=== PATIENT | female | born 1955 | race African-American/Black ===

== ENCOUNTER 2016-09-15 12:10 | Emergency (ER) | payer MEDICARE, MEDICAID ==
[~2016-09-15] VITALS: Ht 167.6 cm; Wt 95.0 kg
[~2016-09-15 12:10] MED LIST: ANXIETY PILL; CARI350T PO; DEPRESSION PILL; FENT1PAT4 TP; OXYC5CAP12 PO; PREG50CA PO; TEMAZAPAM
[2016-09-15] MEDS ORDERED: TRAMADOL 50MG TABLET PO ONE (17:00)
[2016-09-15 17:27] VITALS: BP 151/77
== END 2016-09-15 18:25 | disposition home or self-care (01) ==
LOC: ER 13:06
DX: M25.551 Pain in right hip (principal); R51 Headache; R07.89 Other chest pain; I10 Essential (primary) hypertension; Z88.6 Allergy status to analgesic agent; Z88.8 Allergy status to other drugs, medicaments and biological substances
CPT/HCPCS: 70450; 71111; 73502; 99284

== ENCOUNTER 2016-09-25 20:45 | Inpatient (IN) | payer MEDICARE, MEDICAID ==
[~2016-09-25] VITALS: Ht 152.4 cm; Wt 136.5 kg
[~2016-09-25 20:45] MED LIST changes: +ETOMIDATE 2MG/ML 10ML VIAL IV ONE; +SUCCINYLCHOLINE CHLORIDE 200MG/10ML VIAL IV ONE
[2016-09-25] MEDS ORDERED: PROPOFOL 10MG/ML 100ML 100 ML IV ONE ×2 (21:26→23:15)
[2016-09-25 21:53] LABS: BG BASE EXCESS -2.7 mmol/L (-2.0-2.0); BG FRACTION INSPIRED OXYGEN 50; BG HCO3 ACT 23.7 mmol/L (22.0-26.0); BG METHEMOGLOBIN 0.3 % (0.0-1.5); BG OXYGEN SATURATION 96.8 % (92.0-98.5); BG OXYHEMOGLOBIN 90.7 % (94.0-97.0); BG PO2 104.8 mmHg (75.0-100.0); BG SAMPLE SITE LEFT RADIAL; BG TIDAL VOLUME(mL) 550 mL; BG TOTAL HEMOGLOBIN 14.5 g/dL (12.0-18.0); BG VENT MODE VENT - A/C; BG VENT RATE 16 set
[2016-09-25 22:27] LABS: BASOPHILS % 0.9 % (0.0-2.0); EOSINOPHILS % 2.1 % (0.0-5.0); HEMATOCRIT. 44.1 % (36.0-48.0); HEMOGLOBIN. 14.8 g/dL (12.0-16.0); LYMPHOCYTES % 52.2 % (20.0-50.0); MEAN CORPUSCULAR HEMOGLOBIN 31.2 pg (28.0-32.0); MONOCYTES % 6.7 % (2.0-8.0); NEUTROPHILS % 38.1 % (40.0-76.0); PLATELET 257 x1000/uL (130-400); RED BLOOD CELL COUNT 4.74 mill/uL (4.2-5.4)
[2016-09-25 22:35] LABS: CARBON DIOXIDE 28 mEq/L (21-32); CHLORIDE 109 mEq/L (98-107)
[2016-09-25 22:40] LABS: ETHANOL BLOOD < 10 mg/dL
[2016-09-25 23:07] LABS: CLARITY URINE CLEAR (CLEAR); COLOR URINE YELLOW (YELLOW); GLUCOSE URINE NEGATIVE (NEGATIVE); KETONES URINE TRACE (NEGATIVE); LEUKOCYTE ESTERASE URINE NEGATIVE (NEGATIVE); NITRITE URINE NEGATIVE (NEGATIVE); OCCULT BLOOD URINE NEGATIVE (NEGATIVE); PH URINE 5.5 (4.5-8.0); PROTEIN URINE TRACE (NEGATIVE); SPECIFIC GRAVITY URINE 1.027 (1.005-1.030)
[2016-09-25 23:22] LABS: *AMPHETAMINES SCREEN URINE NEGATIVE (NEGATIVE); *BARBITURATES SCREEN URINE NEGATIVE (NEGATIVE); *BENZODIAZEPINES SCREEN URINE PRESUMTIVE POSITIVE (NEGATIVE); *COCAINE SCREEN URINE NEGATIVE (NEGATIVE); CANNABINOID URINE SCREEN NEGATIVE (NEGATIVE); METHADONE URINE SCREEN NEGATIVE (NEGATIVE); OPIATES URINE SCREEN PRESUMTIVE POSITIVE (NEGATIVE); PHENCYCLIDINE URINE SCREEN NEGATIVE (NEGATIVE)
[2016-09-26] VITALS (39 sets, daily range): BP systolic 128–174; BP diastolic 56–97
[2016-09-26] MEDS ORDERED: PROPOFOL 10MG/ML 100ML 100 ML IV ONE ×2 (01:45→03:00)
[2016-09-26] MEDS ORDERED: DEXT 5%/0.45% NACL 1000ML 1,000 ML IV ONE (03:24)
[2016-09-26] MEDS ORDERED: SODIUM CHLORIDE 0.9% 1,000 ML IV ONE (03:24)
[2016-09-26] MEDS ORDERED: LORAZEPAM 2MG/ML CPJ IV ONE (04:45)
[2016-09-26] MEDS ORDERED: DEXT 5%/0.9% NACL 1,000 ML IV SCH (06:00)
[2016-09-26] MEDS: PANTOPRAZOLE 80 MG in SODIUM CHLORIDE 0.9% 100 ML IV SCH ×2 (08:09→17:25)
[2016-09-26] MEDS: PROPOFOL 10MG/ML 100ML 100 ML IV PRN ×7 (08:10→23:35)
[2016-09-26] MEDS ORDERED: DOCUSATE SODIUM 100MG CAPSULE PO PRN (09:15)
[2016-09-26] MEDS ORDERED: CLONIDINE 0.1MG TABLET PO PRN (09:15)
[2016-09-26] MEDS ORDERED: ONDANSETRON HCL 4MG/2ML VIAL IV PRN (09:15)
[2016-09-26] MEDS ORDERED: GUAIFENESIN 200MG/10ML SUGAR FREE UDC PO PRN (09:15)
[2016-09-26] MEDS ORDERED: ACETAMINOPHEN 650MG/20.3ML UDC GT PRN (09:15)
[2016-09-26] MEDS ORDERED: NA PHOS,M-B/NA PHOS,DI-BA ENEMA 118ML PR PRN (09:15)
[2016-09-26] MEDS ORDERED: HYDROCODONE/ACETAMINOPHEN 5/325MG TABLET PO PRN (09:15)
[2016-09-26] MEDS ORDERED: IPRATROPIUM/ALBUTEROL 0.5-3(2.5)MG/3ML NEB INH SCH (09:15)
[2016-09-26] MEDS ORDERED: MAGNESIUM/ALUMINUM HYDROXIDE/SIMETHICONE 30ML UDC PO PRN (09:15)
[2016-09-26] MEDS ORDERED: ACETAMINOPHEN 650MG SUPP PR PRN (09:15)
[2016-09-26] MEDS: DEXT 5%/0.45% NACL 1000ML 1,000 ML IV SCH ×2 (09:36→19:50)
[2016-09-26 09:57] LABS: BG BASE EXCESS 0.5 mmol/L (-2.0-2.0); BG CARBOXYHEMOGLOBIN 1.1 % (0.5-1.5); BG DEOXYHEMOGLOBIN 2.9 % (0.0-5.0); BG FRACTION INSPIRED OXYGEN 50; BG HCO3 ACT 25.2 mmol/L (22.0-26.0); BG METHEMOGLOBIN 0.4 % (0.0-1.5); BG OXYGEN SATURATION 97.1 % (92.0-98.5); BG OXYHEMOGLOBIN 95.6 % (94.0-97.0); BG PH 7.407 (7.350-7.450); BG PO2 95.1 mmHg (75.0-100.0); BG SAMPLE SITE LEFT BRACHIAL; BG TIDAL VOLUME(mL) 600 mL; BG TOTAL HEMOGLOBIN 14.3 g/dL (12.0-18.0); BG VENT MODE VENT - A/C; BG VENT RATE 16 set
[2016-09-26] MEDS ORDERED: ENOXAPARIN 40MG/0.4ML SYR SUBCUT SCH (10:47)
[2016-09-26] MEDS: ENALAPRIL 1.25MG/ML VIAL 1ML IV SCH ×3 (11:09→23:35)
[2016-09-26] MEDS: IPRATROPIUM/ALBUTEROL 0.5-3(2.5)MG/3ML NEB HHN SCH ×3 (11:50→20:29)
[2016-09-26] MEDS: SODIUM CHLORIDE 0.9% INJ 3ML FLUSH IVF SCH ×2 (14:00→21:24)
[2016-09-26] MEDS ORDERED: ACET1TAB14 PO (14:28)
[2016-09-26] MEDS ORDERED: POTA10TA15 PO (14:28)
[2016-09-26] MEDS ORDERED: DIPH1TAB PO (14:28)
[2016-09-26] MEDS ORDERED: FAMO40TA7 PO (14:28)
[2016-09-26] MEDS ORDERED: TEMA30CA PO (14:28)
[2016-09-26] MEDS ORDERED: CYAN10009 PO (14:28)
[2016-09-26] MEDS ORDERED: HYDR-4134 PO (14:28)
[2016-09-26] MEDS ORDERED: LOSA100T14 PO (14:28)
[2016-09-26] MEDS ORDERED: AMLO2.5T45 PO (14:28)
[2016-09-26] MEDS ORDERED: FERR-63 PO (14:28)
[2016-09-26] MEDS ORDERED: ALPR-392 PO (14:28)
[2016-09-26] MEDS ORDERED: CARI350T27 PO (14:28)
[2016-09-27] VITALS (47 sets, daily range): BP systolic 121–181; BP diastolic 50–99
[2016-09-27] MEDS: IPRATROPIUM/ALBUTEROL 0.5-3(2.5)MG/3ML NEB HHN SCH ×6 (00:36→20:45)
[2016-09-27] MEDS: PROPOFOL 10MG/ML 100ML 100 ML IV PRN ×9 (02:27→23:26)
[2016-09-27] MEDS: PANTOPRAZOLE 80 MG in SODIUM CHLORIDE 0.9% 100 ML IV SCH ×2 (02:43→14:29)
[2016-09-27] MEDS: HYDRALAZINE 20MG/ML VIAL IV PRN ×2 (04:48→19:06)
[2016-09-27] MEDS: DEXT 5%/0.45% NACL 1000ML 1,000 ML IV SCH ×2 (05:07→15:10)
[2016-09-27 05:36] LABS: BASOPHILS % 0.2 % (0.0-2.0); EOSINOPHILS % 0.1 % (0.0-5.0); HEMATOCRIT. 41.9 % (36.0-48.0); HEMOGLOBIN. 13.8 g/dL (12.0-16.0); LYMPHOCYTES % 12.8 % (20.0-50.0); MEAN CORPUSCULAR HEMOGLOBIN 30.4 pg (28.0-32.0); MEAN CORPUSCULAR VOLUME 92.5 fL (81.0-99.0); MEAN PLATELET VOLUME 7.8 fl (7.4-10.4); MONOCYTES % 5.9 % (2.0-8.0); PLATELET 228 x1000/uL (130-400); RED BLOOD CELL COUNT 4.53 mill/uL (4.2-5.4); RED CELL DISTRIBUTION WIDTH 14.1 % (11.6-14.6)
[2016-09-27] MEDS ORDERED: HYDRALAZINE 20MG/ML VIAL IV SCH (06:00)
[2016-09-27] MEDS: SODIUM CHLORIDE 0.9% INJ 3ML FLUSH IVF SCH ×3 (06:23→21:05)
[2016-09-27] MEDS: ENALAPRIL 1.25MG/ML VIAL 1ML IV SCH ×3 (06:27→18:47)
[2016-09-27 07:47] LABS: CARBON DIOXIDE 23 mEq/L (21-32); CHLORIDE 108 mEq/L (98-107)
[2016-09-27 08:08] LABS: BG BASE EXCESS 1.9 mmol/L (-2.0-2.0); BG CARBOXYHEMOGLOBIN 0.8 % (0.5-1.5); BG DEOXYHEMOGLOBIN 2.5 % (0.0-5.0); BG FRACTION INSPIRED OXYGEN 50; BG HCO3 ACT 26.3 mmol/L (22.0-26.0); BG METHEMOGLOBIN 0.1 % (0.0-1.5); BG OXYGEN SATURATION 97.5 % (92.0-98.5); BG OXYHEMOGLOBIN 96.6 % (94.0-97.0); BG PCO2 40.5 mmHg (35.0-45.0); BG PO2 98.1 mmHg (75.0-100.0); BG SAMPLE SITE RIGHT RADIAL; BG TIDAL VOLUME(mL) 500 mL; BG TOTAL HEMOGLOBIN 15.9 g/dL (12.0-18.0); BG VENT MODE VENT - A/C; BG VENT RATE 16 set
[2016-09-27] MEDS ORDERED: POTASSIUM CHLORIDE INJ 40 MEQ in DEXT 5% WATER 250 ML IV SCH (11:00)
[2016-09-27] MEDS: CEFEPIME 1,000 MG in DEXTROSE 5% WATER 50 ML IV SCH ×2 (12:53→22:00)
[2016-09-27] MEDS: MORPHINE SULFATE 2 MG/ML CPJ (NOT FOR IM USE) IV PRN (21:08)
[2016-09-28] VITALS (50 sets, daily range): BP systolic 123–165; BP diastolic 55–97
[2016-09-28] MEDS: IPRATROPIUM/ALBUTEROL 0.5-3(2.5)MG/3ML NEB HHN SCH ×6 (00:12→20:46)
[2016-09-28] MEDS: ENALAPRIL 1.25MG/ML VIAL 1ML IV SCH ×5 (01:17→23:27)
[2016-09-28] MEDS: PANTOPRAZOLE 80 MG in SODIUM CHLORIDE 0.9% 100 ML IV SCH ×3 (01:17→20:06)
[2016-09-28] MEDS: DEXT 5%/0.45% NACL 1000ML 1,000 ML IV SCH ×2 (01:18→11:10)
[2016-09-28] MEDS: PROPOFOL 10MG/ML 100ML 100 ML IV PRN ×4 (03:22→09:02)
[2016-09-28] MEDS: MORPHINE SULFATE 2 MG/ML CPJ (NOT FOR IM USE) IV PRN ×4 (03:27→20:07)
[2016-09-28] MEDS: SODIUM CHLORIDE 0.9% INJ 3ML FLUSH IVF SCH ×3 (05:19→21:18)
[2016-09-28 05:24] LABS: BASOPHILS % 0.3 % (0.0-2.0); EOSINOPHILS % 0.2 % (0.0-5.0); HEMATOCRIT. 37.4 % (36.0-48.0); HEMOGLOBIN. 12.6 g/dL (12.0-16.0); LYMPHOCYTES % 12.2 % (20.0-50.0); MEAN CORPUSCULAR HEMOGLOBIN 31.2 pg (28.0-32.0); MEAN CORPUSCULAR VOLUME 92.6 fL (81.0-99.0); MEAN PLATELET VOLUME 8.3 fl (7.4-10.4); NEUTROPHILS % 81.3 % (40.0-76.0); PLATELET 165 x1000/uL (130-400); RED BLOOD CELL COUNT 4.03 mill/uL (4.2-5.4)
[2016-09-28 05:54] LABS: CARBON DIOXIDE 28 mEq/L (21-32); CHLORIDE 107 mEq/L (98-107)
[2016-09-28 08:41] LABS: BG BASE EXCESS -1.6 mmol/L (-2.0-2.0); BG DEOXYHEMOGLOBIN 5.7 % (0.0-5.0); BG HCO3 ACT 21.9 mmol/L (22.0-26.0); BG METHEMOGLOBIN 0.1 % (0.0-1.5); BG OXYGEN SATURATION 94.2 % (92.0-98.5); BG OXYHEMOGLOBIN 93.2 % (94.0-97.0); BG PCO2 33.1 mmHg (35.0-45.0); BG PH 7.438 (7.350-7.450); BG SAMPLE SITE RIGHT RADIAL; BG TIDAL VOLUME(mL) 500 mL; BG TOTAL HEMOGLOBIN 13.2 g/dL (12.0-18.0); BG VENT MODE VENT - A/C; BG VENT RATE 16 set
[2016-09-28] MEDS: CEFEPIME 1,000 MG in DEXTROSE 5% WATER 50 ML IV SCH ×2 (09:05→21:43)
[2016-09-28 09:11] LABS: PHOSPHORUS 2.7 mg/dL (2.5-4.9)
[2016-09-28] MEDS: PROPOFOL 10MG/ML 100ML 100 ML IV SCH ×5 (11:42→23:02)
[2016-09-28] MEDS ORDERED: KCL 20MEQ/100ML PREMIX 100 ML IV NR (13:00)
[2016-09-28] MEDS ORDERED: LIDOCAINE HCL/PF 1% 2ML VIAL ONE (13:23)
[2016-09-28] MEDS ORDERED: POTASSIUM CHLORIDE INJ 40 MEQ in DEXT 5% WATER 250 ML IV NR (23:30)
[2016-09-29] VITALS (56 sets, daily range): BP systolic 62–167; BP diastolic 32–97
[2016-09-29] MEDS: IPRATROPIUM/ALBUTEROL 0.5-3(2.5)MG/3ML NEB HHN SCH ×6 (00:04→20:04)
[2016-09-29] MEDS: MORPHINE SULFATE 2 MG/ML CPJ (NOT FOR IM USE) IV PRN ×4 (00:14→21:12)
[2016-09-29] MEDS: PROPOFOL 10MG/ML 100ML 100 ML IV SCH ×3 (01:17→07:44)
[2016-09-29] MEDS: DEXT 5%/0.45% NACL 1000ML 1,000 ML IV SCH ×2 (04:36→15:42)
[2016-09-29] MEDS: SODIUM CHLORIDE 0.9% INJ 3ML FLUSH IVF SCH ×3 (05:17→21:05)
[2016-09-29] MEDS: PANTOPRAZOLE 80 MG in SODIUM CHLORIDE 0.9% 100 ML IV SCH (05:32)
[2016-09-29] MEDS: ENALAPRIL 1.25MG/ML VIAL 1ML IV SCH ×3 (05:32→17:55)
[2016-09-29 08:56] LABS: BG BASE EXCESS 0.5 mmol/L (-2.0-2.0); BG CARBOXYHEMOGLOBIN 0.8 % (0.5-1.5); BG FRACTION INSPIRED OXYGEN 45; BG HCO3 ACT 24.9 mmol/L (22.0-26.0); BG METHEMOGLOBIN 0.2 % (0.0-1.5); BG OXYGEN SATURATION 94.9 % (92.0-98.5); BG PCO2 39.6 mmHg (35.0-45.0); BG PH 7.417 (7.350-7.450); BG PO2 78.1 mmHg (75.0-100.0); BG PRESSURE SUPPORT 8; BG SAMPLE SITE LEFT RADIAL; BG TIDAL VOLUME(mL) 500 mL; BG TOTAL HEMOGLOBIN 12.3 g/dL (12.0-18.0); BG VENT MODE VENT - SIMV; BG VENT RATE 12 set
[2016-09-29] MEDS: CEFEPIME 1,000 MG in DEXTROSE 5% WATER 50 ML IV SCH ×2 (09:25→21:05)
[2016-09-29 10:06] LABS: BASOPHILS % 0.4 % (0.0-2.0); EOSINOPHILS % 1.9 % (0.0-5.0); HEMATOCRIT. 37.8 % (36.0-48.0); HEMOGLOBIN. 12.4 g/dL (12.0-16.0); LYMPHOCYTES % 18.5 % (20.0-50.0); MEAN CORPUSCULAR HEMOGLOBIN 30.8 pg (28.0-32.0); MEAN CORPUSCULAR VOLUME 94.1 fL (81.0-99.0); MEAN PLATELET VOLUME 8.2 fl (7.4-10.4); MONOCYTES % 8.2 % (2.0-8.0); PLATELET 185 x1000/uL (130-400); RED BLOOD CELL COUNT 4.02 mill/uL (4.2-5.4); RED CELL DISTRIBUTION WIDTH 14.2 % (11.6-14.6)
[2016-09-29 10:21] LABS: CARBON DIOXIDE 26 mEq/L (21-32); CHLORIDE 107 mEq/L (98-107)
[2016-09-29] MEDS ORDERED: FENTANYL CITRATE/PF 50MCG/ML 2ML VIAL ONE (10:33)
[2016-09-29] MEDS ORDERED: SIMETHICONE 40 MG/0.6 ML 30ML ONE (10:33)
[2016-09-29] MEDS ORDERED: MIDAZOLAM HCL 5 MG/5 ML VIAL ONE (10:33)
[2016-09-29] MEDS ORDERED: MIDAZOLAM HCL 5 MG/5 ML VIAL IV PRN (10:50)
[2016-09-29] MEDS ORDERED: FENTANYL CITRATE/PF 50MCG/ML 2ML VIAL IV PRN (10:50)
[2016-09-29] MEDS: PROPOFOL 10MG/ML 100ML 100 ML IV PRN ×4 (11:55→22:05)
[2016-09-29] MEDS ORDERED: SODIUM CHLORIDE 0.9% 10ML VIAL ONE (13:49)
[2016-09-29] MEDS: PANTOPRAZOLE SODIUM 40 MG/VIAL IV SCH (21:05)
[2016-09-30] VITALS (85 sets, daily range): BP systolic 95–154; BP diastolic 43–107
[2016-09-30] MEDS: DEXAMETHASONE 4MG/ML 1ML VIAL IV SCH ×5 (00:05→23:07)
[2016-09-30] MEDS: ENALAPRIL 1.25MG/ML VIAL 1ML IV SCH ×5 (00:05→23:07)
[2016-09-30] MEDS: IPRATROPIUM/ALBUTEROL 0.5-3(2.5)MG/3ML NEB HHN SCH ×6 (00:38→20:14)
[2016-09-30] MEDS: PROPOFOL 10MG/ML 100ML 100 ML IV PRN ×6 (01:26→17:55)
[2016-09-30] MEDS: MORPHINE SULFATE 2 MG/ML CPJ (NOT FOR IM USE) IV PRN ×2 (02:17→19:30)
[2016-09-30] MEDS: DEXT 5%/0.45% NACL 1000ML 1,000 ML IV SCH ×2 (02:30→13:13)
[2016-09-30] MEDS: SODIUM CHLORIDE 0.9% INJ 3ML FLUSH IVF SCH ×3 (05:01→21:46)
[2016-09-30 05:29] LABS: HEMATOCRIT 32.3 % (36.0-48.0); HEMOGLOBIN 11.2 g/dL (12.0-16.0); MEAN CORPUSCULAR HEMOGLOBIN 31.9 pg (28.0-32.0); MEAN CORPUSCULAR VOLUME 92.1 fL (81.0-99.0); PLATELET 189 x1000/uL (130-400); RED BLOOD CELL COUNT 3.51 mill/uL (4.2-5.4); RED CELL DISTRIBUTION WIDTH 13.7 % (11.6-14.6)
[2016-09-30 05:56] LABS: CARBON DIOXIDE 31 mEq/L (21-32); CHLORIDE 104 mEq/L (98-107)
[2016-09-30] MEDS: CEFEPIME 1,000 MG in DEXTROSE 5% WATER 50 ML IV SCH ×2 (08:17→21:45)
[2016-09-30] MEDS ORDERED: PANTOPRAZOLE SODIUM 40 MG/VIAL IV SCH (09:00)
[2016-09-30] MEDS: PANTOPRAZOLE SODIUM 40 MG/VIAL IV SCH ×2 (09:30→21:45)
[2016-09-30 09:45] LABS: BG BASE EXCESS 2.4 mmol/L (-2.0-2.0); BG CARBOXYHEMOGLOBIN 0.3 % (0.5-1.5); BG DEOXYHEMOGLOBIN 4.5 % (0.0-5.0); BG FRACTION INSPIRED OXYGEN 45; BG HCO3 ACT 27.3 mmol/L (22.0-26.0); BG METHEMOGLOBIN 0.1 % (0.0-1.5); BG OXYGEN SATURATION 95.5 % (92.0-98.5); BG OXYHEMOGLOBIN 95.1 % (94.0-97.0); BG PCO2 43.7 mmHg (35.0-45.0); BG PH 7.414 (7.350-7.450); BG PO2 84.9 mmHg (75.0-100.0); BG PRESSURE SUPPORT 8; BG SAMPLE SITE LEFT RADIAL; BG TOTAL HEMOGLOBIN 12.6 g/dL (12.0-18.0); BG VENT MODE VENT - CPAP
[2016-09-30] MEDS ORDERED: POTASSIUM CHLORIDE INJ 40 MEQ in DEXT 5% WATER 250 ML IV NR (11:00)
[2016-09-30] MEDS ORDERED: MIDAZOLAM HCL 50 MG in DEXTROSE 5% WATER 40 ML IV PRN (19:45)
[2016-09-30] MEDS ORDERED: FENTANYL CITRATE/PF 500 MCG in SODIUM CHLORIDE 0.9% 40 ML IV PRN (21:00)
[2016-09-30] MEDS: QUETIAPINE FUMARATE 25MG TABLET NG SCH (21:45)
[2016-10-01] VITALS (91 sets, daily range): BP systolic 107–154; BP diastolic 42–132
[2016-10-01] MEDS: IPRATROPIUM/ALBUTEROL 0.5-3(2.5)MG/3ML NEB HHN SCH ×6 (00:17→20:24)
[2016-10-01 05:57] LABS: CARBON DIOXIDE 32 mEq/L (21-32); CHLORIDE 106 mEq/L (98-107)
[2016-10-01] MEDS: ENALAPRIL 1.25MG/ML VIAL 1ML IV SCH ×4 (06:00→23:22)
[2016-10-01] MEDS: DEXAMETHASONE 4MG/ML 1ML VIAL IV SCH ×4 (06:02→23:23)
[2016-10-01] MEDS: SODIUM CHLORIDE 0.9% INJ 3ML FLUSH IVF SCH ×3 (06:04→22:57)
[2016-10-01] MEDS: DEXT 5%/0.45% NACL 1000ML 1,000 ML IV SCH (06:07)
[2016-10-01] MEDS: PANTOPRAZOLE SODIUM 40 MG/VIAL IV SCH ×2 (08:46→20:23)
[2016-10-01] MEDS: CEFEPIME 1,000 MG in DEXTROSE 5% WATER 50 ML IV SCH ×2 (08:46→20:24)
[2016-10-01] MEDS: QUETIAPINE FUMARATE 25MG TABLET NG SCH ×2 (08:46→20:23)
[2016-10-01] MEDS ORDERED: LACTULOSE 20G/30ML UDC PO PRN (11:00)
[2016-10-01] MEDS: MORPHINE SULFATE 2 MG/ML CPJ (NOT FOR IM USE) IV PRN ×2 (12:18→20:26)
[2016-10-01] MEDS: HYDRALAZINE 20MG/ML VIAL IV PRN (13:30)
[2016-10-01] MEDS: LORAZEPAM 2MG/ML CPJ IV PRN ×3 (14:10→23:20)
[2016-10-02] VITALS (52 sets, daily range): BP systolic 98–163; BP diastolic 56–123
[2016-10-02] MEDS: IPRATROPIUM/ALBUTEROL 0.5-3(2.5)MG/3ML NEB HHN SCH ×6 (00:08→20:00)
[2016-10-02] MEDS: DEXAMETHASONE 4MG/ML 1ML VIAL IV SCH (05:57)
[2016-10-02] MEDS: ENALAPRIL 1.25MG/ML VIAL 1ML IV SCH ×4 (05:59→23:37)
[2016-10-02] MEDS: SODIUM CHLORIDE 0.9% INJ 3ML FLUSH IVF SCH (06:00)
[2016-10-02] MEDS: DEXT 5%/0.45% NACL 1000ML 1,000 ML IV SCH (06:01)
[2016-10-02] MEDS: PANTOPRAZOLE SODIUM 40 MG/VIAL IV SCH ×2 (08:19→20:21)
[2016-10-02] MEDS: QUETIAPINE FUMARATE 25MG TABLET NG SCH ×2 (08:19→20:21)
[2016-10-02] MEDS: MORPHINE SULFATE 2 MG/ML CPJ (NOT FOR IM USE) IV PRN ×3 (08:20→16:51)
[2016-10-02] MEDS: LORAZEPAM 2MG/ML CPJ IV PRN ×3 (08:20→23:38)
[2016-10-02] MEDS: CEFEPIME 1,000 MG in DEXTROSE 5% WATER 50 ML IV SCH ×2 (08:27→20:21)
[2016-10-02] MEDS: DEXAMETHASONE 10MG/ML 1ML VIAL IV SCH ×3 (12:31→23:37)
[2016-10-02] MEDS: ACETAMINOPHEN 325MG TABLET PO PRN (22:41)
[2016-10-03] VITALS (48 sets, daily range): BP systolic 108–185; BP diastolic 50–117
[2016-10-03] MEDS: IPRATROPIUM/ALBUTEROL 0.5-3(2.5)MG/3ML NEB HHN SCH ×6 (00:03→20:07)
[2016-10-03] MEDS: DEXAMETHASONE 10MG/ML 1ML VIAL IV SCH ×3 (06:25→20:31)
[2016-10-03] MEDS: ENALAPRIL 1.25MG/ML VIAL 1ML IV SCH ×4 (06:25→23:49)
[2016-10-03 07:55] LABS: BG BASE EXCESS 3.5 mmol/L (-2.0-2.0); BG CARBOXYHEMOGLOBIN 0.4 % (0.5-1.5); BG DEOXYHEMOGLOBIN 2.3 % (0.0-5.0); BG FRACTION INSPIRED OXYGEN 45; BG HCO3 ACT 29.2 mmol/L (22.0-26.0); BG METHEMOGLOBIN 0.1 % (0.0-1.5); BG OXYGEN SATURATION 97.7 % (92.0-98.5); BG OXYHEMOGLOBIN 97.2 % (94.0-97.0); BG PCO2 49.3 mmHg (35.0-45.0); BG PH 7.391 (7.350-7.450); BG PO2 110.6 mmHg (75.0-100.0); BG PRESSURE SUPPORT 8; BG SAMPLE SITE RIGHT RADIAL; BG TOTAL HEMOGLOBIN 12.2 g/dL (12.0-18.0); BG VENT MODE VENT - CPAP
[2016-10-03] MEDS: PANTOPRAZOLE SODIUM 40 MG/VIAL IV SCH (08:20)
[2016-10-03] MEDS: CEFEPIME 1,000 MG in DEXTROSE 5% WATER 50 ML IV SCH ×2 (08:20→20:31)
[2016-10-03] MEDS: DEXT 5%/0.45% NACL 1000ML 1,000 ML IV SCH ×3 (08:37→23:52)
[2016-10-03] MEDS: LORAZEPAM 2MG/ML CPJ IV PRN ×2 (08:37→20:42)
[2016-10-03] MEDS: QUETIAPINE FUMARATE 25MG TABLET NG SCH ×2 (08:46→20:31)
[2016-10-03] MEDS ORDERED: FAMOTIDINE 20MG/2ML VIAL IV SCH (09:30)
[2016-10-03] MEDS ORDERED: RACEPINEPHRINE 2.25% 0.5ML NEB VIAL HHN PRN (10:00)
[2016-10-03] MEDS ORDERED: LIDOCAINE HCL/PF 1% 2ML VIAL ONE (12:31)
[2016-10-03] MEDS: FAMOTIDINE 20MG/2ML VIAL IV SCH (20:31)
[2016-10-04] VITALS (37 sets, daily range): BP systolic 110–179; BP diastolic 33–128
[2016-10-04] MEDS: IPRATROPIUM/ALBUTEROL 0.5-3(2.5)MG/3ML NEB HHN SCH ×6 (00:19→20:30)
[2016-10-04] MEDS: HYDRALAZINE 20MG/ML VIAL IV PRN (00:52)
[2016-10-04] MEDS: DEXAMETHASONE 10MG/ML 1ML VIAL IV SCH ×3 (06:52→21:01)
[2016-10-04] MEDS: ENALAPRIL 1.25MG/ML VIAL 1ML IV SCH ×3 (06:52→17:13)
[2016-10-04] MEDS: DEXT 5%/0.45% NACL 1000ML 1,000 ML IV SCH (08:54)
[2016-10-04] MEDS: CEFEPIME 1,000 MG in DEXTROSE 5% WATER 50 ML IV SCH ×2 (08:54→23:12)
[2016-10-04] MEDS: FAMOTIDINE 20MG/2ML VIAL IV SCH ×2 (08:54→21:01)
[2016-10-04] MEDS: QUETIAPINE FUMARATE 25MG TABLET PO SCH ×3 (09:30→21:01)
[2016-10-04 10:43] LABS: BASOPHILS % 0.5 % (0.0-2.0); EOSINOPHILS % 0.6 % (0.0-5.0); HEMATOCRIT. 35.2 % (36.0-48.0); HEMOGLOBIN. 11.9 g/dL (12.0-16.0); LYMPHOCYTES % 13.3 % (20.0-50.0); MEAN CORPUSCULAR HEMOGLOBIN 30.9 pg (28.0-32.0); MEAN CORPUSCULAR VOLUME 91.7 fL (81.0-99.0); MEAN PLATELET VOLUME 7.4 fl (7.4-10.4); MONOCYTES % 8.9 % (2.0-8.0); NEUTROPHILS % 76.7 % (40.0-76.0); PLATELET 279 x1000/uL (130-400); RED BLOOD CELL COUNT 3.84 mill/uL (4.2-5.4); RED CELL DISTRIBUTION WIDTH 13.2 % (11.6-14.6)
[2016-10-04 10:53] LABS: CHLORIDE 103 mEq/L (98-107)
[2016-10-04 11:06] LABS: CARBON DIOXIDE 30 mEq/L (21-32); PHOSPHORUS 2.2 mg/dL (2.5-4.9)
[2016-10-04] MEDS: SUCRALFATE 1 G/10 ML UDC PO SCH ×3 (11:53→21:00)
[2016-10-04] MEDS: GABAPENTIN 300MG CAPSULE PO SCH ×2 (11:54→17:13)
[2016-10-04] MEDS: LORAZEPAM 2MG/ML CPJ IV PRN (15:01)
[2016-10-04] MEDS: ACETAMINOPHEN 325MG TABLET PO PRN (23:18)
[2016-10-05] VITALS: BP 104/49
[2016-10-05] MEDS: LORAZEPAM 2MG/ML CPJ IV PRN ×2 (03:34→09:02)
[2016-10-05 03:39] VITALS: BP 108/58
[2016-10-05] MEDS: IPRATROPIUM/ALBUTEROL 0.5-3(2.5)MG/3ML NEB HHN SCH ×6 (04:40→20:00)
[2016-10-05] MEDS: ENALAPRIL 1.25MG/ML VIAL 1ML IV SCH ×4 (06:00→18:00)
[2016-10-05] MEDS: DEXAMETHASONE 10MG/ML 1ML VIAL IV SCH ×3 (06:40→21:13)
[2016-10-05] MEDS: SUCRALFATE 1 G/10 ML UDC PO SCH ×4 (06:57→21:13)
[2016-10-05 08:00] VITALS: BP 114/71
[2016-10-05] MEDS: FAMOTIDINE 20MG/2ML VIAL IV SCH ×2 (08:49→21:13)
[2016-10-05] MEDS: GABAPENTIN 300MG CAPSULE PO SCH ×3 (08:49→18:08)
[2016-10-05] MEDS: QUETIAPINE FUMARATE 25MG TABLET PO SCH ×3 (08:49→21:13)
[2016-10-05] MEDS: AMLODIPINE 10MG TABLET PO SCH (08:49)
[2016-10-05] MEDS: ACETAMINOPHEN 325MG TABLET PO PRN (09:02)
[2016-10-05 12:03] VITALS: BP 140/87
[2016-10-05 16:00] VITALS: BP 138/78
[2016-10-05 20:00] VITALS: BP 118/58
[2016-10-06] VITALS: BP 136/77
[2016-10-06] MEDS: ENALAPRIL 1.25MG/ML VIAL 1ML IV SCH ×4 (00:24→18:00)
[2016-10-06 04:00] VITALS: BP 120/70
[2016-10-06] MEDS: IPRATROPIUM/ALBUTEROL 0.5-3(2.5)MG/3ML NEB HHN SCH ×4 (04:00→13:07)
[2016-10-06] MEDS: DEXAMETHASONE 10MG/ML 1ML VIAL IV SCH (06:32)
[2016-10-06 08:00] VITALS: BP 129/82
[2016-10-06] MEDS: GABAPENTIN 300MG CAPSULE PO SCH ×3 (08:20→17:00)
[2016-10-06] MEDS: FAMOTIDINE 20MG/2ML VIAL IV SCH (08:20)
[2016-10-06] MEDS: AMLODIPINE 10MG TABLET PO SCH (08:21)
[2016-10-06] MEDS: SUCRALFATE 1 G/10 ML UDC PO SCH ×3 (08:21→17:40)
[2016-10-06] MEDS ORDERED: TRAMADOL 50MG TABLET PO PRN (08:30)
[2016-10-06] MEDS: QUETIAPINE FUMARATE 25MG TABLET PO SCH ×2 (09:00→09:15)
[2016-10-06 12:00] VITALS: BP 120/81
[2016-10-06 12:14] LABS: HEMATOCRIT 36.4 % (36.0-48.0); HEMOGLOBIN 11.9 g/dL (12.0-16.0); MEAN CORPUSCULAR HEMOGLOBIN 30.2 pg (28.0-32.0); MEAN CORPUSCULAR VOLUME 92.3 fL (81.0-99.0); PLATELET 318 x1000/uL (130-400); RED BLOOD CELL COUNT 3.95 mill/uL (4.2-5.4); RED CELL DISTRIBUTION WIDTH 13.9 % (11.6-14.6)
[2016-10-06 12:45] LABS: CARBON DIOXIDE 25 mEq/L (21-32); CHLORIDE 103 mEq/L (98-107)
[2016-10-06] MEDS ORDERED: DEXAMETHASONE 4MG/ML 1ML VIAL IV SCH (14:00)
[2016-10-06 16:00] VITALS: BP 119/74
== END 2016-10-06 18:10 | disposition left against medical advice (07) | DRG 870 ==
LOC: ER 21:07 → MICUSO 09-26 02:11 → EDBEDREQ 09-26 04:16 → ENRESERV 09-26 04:20 → MICUNO 09-26 10:25 → 7WST 10-04 18:30
PROVIDERS: ADMIT Family Medicine; ATTEND Family Medicine
PROC: 5A1955Z Respiratory Ventilation, Greater than 96 Consecutive Hours (ICD-10-PCS; 2016-09-25)
PROC: 0BH17EZ Insertion of Endotracheal Airway into Trachea, Via Natural or Artificial Opening (ICD-10-PCS; 2016-09-25)
PROC: 02HV33Z Insertion of Infusion Device into Superior Vena Cava, Percutaneous Approach (ICD-10-PCS; 2016-09-27)
PROC: B548ZZA Ultrasonography of Superior Vena Cava, Guidance (ICD-10-PCS; 2016-09-27)
PROC: 0DB68ZX Excision of Stomach, Via Natural or Artificial Opening Endoscopic, Diagnostic (ICD-10-PCS; principal; 2016-09-29 10:30)
DX: A41.9 Sepsis, unspecified organism (principal); G92 Toxic encephalopathy; J96.00 Acute respiratory failure, unspecified whether with hypoxia or hypercapnia; J69.0 Pneumonitis due to inhalation of food and vomit; K22.10 Ulcer of esophagus without bleeding; F33.2 Major depressive disorder, recurrent severe without psychotic features; E87.4 Mixed disorder of acid-base balance; J68.0 Bronchitis and pneumonitis due to chemicals, gases, fumes and vapors; Z68.43 Body mass index [BMI] 50.0-59.9, adult; E66.01 Morbid (severe) obesity due to excess calories; T42.4X2A Poisoning by benzodiazepines, intentional self-harm, initial encounter; T54.92XA Toxic effect of unspecified corrosive substance, intentional self-harm, initial encounter; K29.60 Other gastritis without bleeding; J38.4 Edema of larynx; I73.9 Peripheral vascular disease, unspecified; I10 Essential (primary) hypertension; F41.9 Anxiety disorder, unspecified; E87.6 Hypokalemia; E86.0 Dehydration; E11.51 Type 2 diabetes mellitus with diabetic peripheral angiopathy without gangrene; Z91.5 Personal history of self-harm; Z89.512 Acquired absence of left leg below knee; Z89.511 Acquired absence of right leg below knee; Z63.9 Problem related to primary support group, unspecified; Y92.89 Other specified places as the place of occurrence of the external cause; Z88.6 Allergy status to analgesic agent; Z88.8 Allergy status to other drugs, medicaments and biological substances; Z79.899 Other long term (current) drug therapy
CPT/HCPCS: 31500; 31525; 36415; 36569; 36600; 43760; 51702; 71010; 76937; 80048; 80053; 80061; 80076; 80305; 80307; 80329; 81001; 82375; 82805; 83735; 84100; 84132; 84134; 84443; 84478; 85025; 85027; 87040; 87086; 88305; 88312; 88313; 92610; 93005; 94002; 94003; 94640; 94664; 96360; 97110; 97116; 97163; 97166; 97535; 99291; A4216; A6261; C1725; C9113; G0482; J0330; J0360; J0692; J1100; J2060; J2250; J2270; J2704; J3010; J3480; J3490; J7030; J7040; J7042; J7050; J7060; J7620; A4315

== ENCOUNTER 2020-06-16 16:29 | Inpatient (IN) | payer MEDICARE, MEDICAID ==
[~2020-06-16] VITALS: Ht 121.9 cm; Wt 126.8 kg
[~2020-06-16 16:29] MED LIST changes: +ACET1TAB14 PO; +ALPR-392 PO; +ALPR2TAB97 PO; +AMLO2.5T45 MT; -ANXIETY PILL; +APAP/CODEINE PO; -CARI350T PO; +CYAN100T43 PO; -DEPRESSION PILL; +DULO60CA44 PO; -ETOMIDATE 2MG/ML 10ML VIAL IV ONE; -FENT1PAT4 TP; +GABA-532 PO; +HYDR-4134 PO; +IMOD MT; -OXYC5CAP12 PO; -PREG50CA PO; -SUCCINYLCHOLINE CHLORIDE 200MG/10ML VIAL IV ONE; +TEMA30CA PO; -TEMAZAPAM
[2020-06-17 00:33] LABS: CHLORIDE 109 mEq/L (98-107)
[2020-06-17 00:42] LABS: BASOPHILS % 1.6 % (0.0-2.0); EOSINOPHILS % 2.8 % (0.0-5.0); HEMATOCRIT. 36.2 % (36.0-48.0); HEMOGLOBIN. 11.8 g/dL (12.0-16.0); LYMPHOCYTES % 31.7 % (20.0-50.0); MEAN CORPUSCULAR HEMOGLOBIN 29.9 pg (28.0-32.0); MEAN CORPUSCULAR VOLUME 91.5 fL (81.0-99.0); MEAN PLATELET VOLUME 7.1 fl (7.4-10.4); MONOCYTES % 6.7 % (2.0-8.0); NEUTROPHILS % 57.2 % (40.0-76.0); PLATELET 366 x1000/uL (130-400); RED BLOOD CELL COUNT 3.96 mill/uL (4.2-5.4); RED CELL DISTRIBUTION WIDTH 17.1 % (11.6-14.6)
[2020-06-17] MEDS ORDERED: ACETAMINOPHEN 325MG TABLET PO PRN (01:15)
[2020-06-17] MEDS ORDERED: HYDROCODONE/ACETAMINOPHEN 5/325MG TABLET PO PRN (01:15)
[2020-06-17] MEDS ORDERED: CLONIDINE 0.1MG TABLET PO PRN (01:15)
[2020-06-17] MEDS ORDERED: ONDANSETRON HCL 4MG/2ML INJ IV PRN (01:15)
[2020-06-17] MEDS ORDERED: TEMAZEPAM 15MG CAPSULE PO PRN (01:30)
[2020-06-17] MEDS: ALPRAZOLAM 0.25 MG TABLET PO PRN ×2 (03:17→10:09)
[2020-06-17 03:29] LABS: CLARITY URINE CLOUDY (CLEAR); COLOR URINE DARK YELLOW (YELLOW); KETONES URINE TRACE (NEGATIVE); LEUKOCYTE ESTERASE URINE NEGATIVE (NEGATIVE); NITRITE URINE POSITIVE (NEGATIVE); OCCULT BLOOD URINE TRACE (NEGATIVE); PH URINE 6.5 (4.5-8.0); PROTEIN URINE 1+ (NEGATIVE); SPECIFIC GRAVITY URINE 1.033 (1.005-1.030)
[2020-06-17] MEDS: GABAPENTIN 300MG CAPSULE PO SCH ×3 (05:33→21:00)
[2020-06-17] MEDS ORDERED: CEFTRIAXONE 1 G PREMIX 50 ML IV SCH (10:00)
[2020-06-17] MEDS: DULOXETINE HCL 60MG DR CAPSULE PO SCH (10:05)
[2020-06-17] MEDS: AMLODIPINE 2.5MG TABLET PO SCH (10:06)
[2020-06-17] MEDS: HYDRALAZINE HCL 25MG TABLET PO SCH ×2 (10:07→21:00)
[2020-06-17] MEDS: SODIUM CHLORIDE 0.45% 1,000 ML IV SCH ×2 (10:19→19:55)
[2020-06-17 11:41] LABS: T4 FREE 1.03 ng/dL (0.76-1.46)
[2020-06-17] MEDS: CEFTRIAXONE 1,000 MG in DEXTROSE 5% WATER 50 ML IV SCH (14:36)
[2020-06-17] MEDS: ACETAMINOPHEN WITH CODEINE 300/60MG TABLET PO PRN (14:49)
[2020-06-17 16:00] VITALS: BP 122/62
[2020-06-17 16:37] VITALS: BP 135/84
[2020-06-17 17:49] LABS: CREATINE KINASE MB FRACTION 1.7 ng/mL (0.5-3.6)
[2020-06-17 17:50] LABS: CREATINE KINASE 42 IU/L (26-192)
[2020-06-18] VITALS: BP 115/55
[2020-06-18 00:12] LABS: CREATINE KINASE MB FRACTION 1.6 ng/mL (0.5-3.6)
[2020-06-18 04:00] VITALS: BP 127/71
[2020-06-18] MEDS: GABAPENTIN 300MG CAPSULE PO SCH ×3 (05:34→22:28)
[2020-06-18] MEDS: ACETAMINOPHEN WITH CODEINE 300/60MG TABLET PO PRN ×3 (05:39→22:27)
[2020-06-18 07:04] LABS: CHLORIDE 109 mEq/L (98-107)
[2020-06-18 07:09] LABS: BASOPHILS % 0.7 % (0.0-2.0); EOSINOPHILS % 2.5 % (0.0-5.0); HEMATOCRIT. 33.8 % (36.0-48.0); HEMOGLOBIN. 10.8 g/dL (12.0-16.0); LYMPHOCYTES % 32.4 % (20.0-50.0); MEAN CORPUSCULAR HEMOGLOBIN 30.1 pg (28.0-32.0); MEAN CORPUSCULAR VOLUME 94.1 fL (81.0-99.0); MEAN PLATELET VOLUME 7.1 fl (7.4-10.4); MONOCYTES % 9.1 % (2.0-8.0); NEUTROPHILS % 55.3 % (40.0-76.0); PLATELET 324 x1000/uL (130-400); RED BLOOD CELL COUNT 3.59 mill/uL (4.2-5.4); RED CELL DISTRIBUTION WIDTH 17.5 % (11.6-14.6)
[2020-06-18 07:17] LABS: LDL CHOLESTEROL 34 mg/dL (5-100)
[2020-06-18 07:19] LABS: CREATINE KINASE 42 IU/L (26-192); HDL CHOLESTEROL 50 mg/dL (40-59)
[2020-06-18 07:23] LABS: CREATINE KINASE MB FRACTION 1.5 ng/mL (0.5-3.6)
[2020-06-18 08:00] VITALS: BP 143/91
[2020-06-18] MEDS: AMLODIPINE 2.5MG TABLET PO SCH (09:02)
[2020-06-18] MEDS: DULOXETINE HCL 60MG DR CAPSULE PO SCH (09:02)
[2020-06-18] MEDS: HYDRALAZINE HCL 25MG TABLET PO SCH ×2 (09:03→22:28)
[2020-06-18 12:00] VITALS: BP 140/89
[2020-06-18] MEDS: CEFTRIAXONE 1,000 MG in DEXTROSE 5% WATER 50 ML IV SCH (12:48)
[2020-06-18] MEDS: ALPRAZOLAM 0.25 MG TABLET PO PRN (14:48)
[2020-06-18 16:00] VITALS: BP 143/81
[2020-06-18] MEDS: SODIUM CHLORIDE 0.45% 1,000 ML IV SCH (17:13)
[2020-06-18 20:00] VITALS: BP 141/84
[2020-06-18] MEDS: ENOXAPARIN 40MG/0.4ML SYR SUBCUT SCH (22:26)
[2020-06-19] VITALS: BP 139/66
[2020-06-19 04:00] VITALS: BP 129/77
[2020-06-19] MEDS: GABAPENTIN 300MG CAPSULE PO SCH (06:16)
[2020-06-19 06:52] LABS: CHLORIDE 105 mEq/L (98-107)
[2020-06-19 06:56] LABS: BASOPHILS % 0.9 % (0.0-2.0); EOSINOPHILS % 3.8 % (0.0-5.0); HEMATOCRIT. 33.6 % (36.0-48.0); HEMOGLOBIN. 10.7 g/dL (12.0-16.0); LYMPHOCYTES % 36.5 % (20.0-50.0); MEAN CORPUSCULAR HEMOGLOBIN 29.3 pg (28.0-32.0); MEAN CORPUSCULAR VOLUME 91.9 fL (81.0-99.0); MEAN PLATELET VOLUME 7.1 fl (7.4-10.4); MONOCYTES % 8.7 % (2.0-8.0); NEUTROPHILS % 50.1 % (40.0-76.0); PLATELET 347 x1000/uL (130-400); RED BLOOD CELL COUNT 3.65 mill/uL (4.2-5.4); RED CELL DISTRIBUTION WIDTH 17.1 % (11.6-14.6)
[2020-06-19 08:00] VITALS: BP 167/67
[2020-06-19] MEDS: AMLODIPINE 2.5MG TABLET PO SCH (09:03)
[2020-06-19] MEDS: DULOXETINE HCL 60MG DR CAPSULE PO SCH (09:03)
[2020-06-19] MEDS: HYDRALAZINE HCL 25MG TABLET PO SCH (09:03)
[2020-06-19] MEDS: ENOXAPARIN 40MG/0.4ML SYR SUBCUT SCH (09:03)
[2020-06-19 10:45] VITALS: BP 129/68
[2020-06-19] MEDS: ACETAMINOPHEN WITH CODEINE 300/60MG TABLET PO PRN (11:52)
[2020-06-19 16:00] VITALS: BP 136/60
== END 2020-06-19 12:15 | DRG 74 ==
LOC: ER 16:29 → SUPCPDRO 16:39 → 8WST 23:53 → ENRESERV 06-17 07:28
PROVIDERS: ADMIT Internal Medicine Nephrology; ATTEND Internal Medicine Nephrology
DX: G90.9 Disorder of the autonomic nervous system, unspecified (principal); N39.0 Urinary tract infection, site not specified; E46 Unspecified protein-calorie malnutrition; I42.9 Cardiomyopathy, unspecified; Z68.45 Body mass index [BMI] 70 or greater, adult; G90.8 Other disorders of autonomic nervous system; F41.9 Anxiety disorder, unspecified; I11.0 Hypertensive heart disease with heart failure; I50.9 Heart failure, unspecified; R29.6 Repeated falls; F32.9 Major depressive disorder, single episode, unspecified; Z20.822 Contact with and (suspected) exposure to COVID-19; R79.89 Other specified abnormal findings of blood chemistry; Z89.612 Acquired absence of left leg above knee; Z89.611 Acquired absence of right leg above knee; Z88.8 Allergy status to other drugs, medicaments and biological substances; Z79.1 Long term (current) use of non-steroidal anti-inflammatories (NSAID); Z79.899 Other long term (current) drug therapy
CPT/HCPCS: 36415; 71045; 78580; 80048; 80053; 80061; 81003; 82140; 82550; 82553; 83036; 83880; 84439; 84443; 84484; 85025; 85379; 87426; 93005; 93306; 93880; 97163; 99285; J0696; J1650; J7060